=== PATIENT | male | born 1990 | race Caucasian/White ===

== ENCOUNTER 2019-11-16 10:54 | Emergency (ER) | payer OTHER ==
[2019-11-16 11:09] VITALS: TEMP 98.5; BMI 18.1
[2019-11-16] MEDS ORDERED: KETAMINE HCL 200 MG/20 ML VIAL IVPUSH ONE (12:07)
[2019-11-16] MEDS ORDERED: morphine CARPU-JECT 8 MG/1 ML DISP.SYRIN IVPUSH ONE (12:08)
[2019-11-16] MEDS ORDERED: LIDOCAINE HCL 1%, 10 MG/ML (20ML VIAL) ONE (12:12)
[2019-11-16] MEDS ORDERED: morphine SULFATE 4 MG/ML VIAL ONE (12:27)
[2019-11-16] MEDS ORDERED: KETAMINE HCL 200 MG/20 ML VIAL ONE (12:27)
[2019-11-16] MEDS ORDERED: ACETAMINOPHEN 325 MG TABLET (FP) PO ONE (13:32)
--- NOTE | 2019-11-16 13:46 | PDOC ---
Documentation entered by Veronica Merino SCRIBE, acting as scribe for Elida Blanco MD. Elida Blanco MD: This documentation has been prepared by the scribeWilber Ana, SCRIBE, under my direction and personally reviewed by me in its entirety. I confirm that the documentation accurately reflects all work, treatment, procedures, and medical decision making performed by me. History of Present Illness - General Chief Complaint: Shoulder Dislocation Stated Complaint: RT SHOULDER INJURY/PAIN Time Seen by Provider: 11/16/19 11:19 History Source: Patient Exam Limitations: No Limitations - History of Present Illness Initial Comments: 11/16/19 11:31 Patient is a 29 year old male with a significant past medical history of brain tumor, epilepsy disorder, and multiple shoulder dislocation, who presents to the ED with shoulder pain since 4 days ago. Patient stated he had a seizure on Thursday (4 days ago) and hit his shoulder. Patient disclosed he is in "a lot of pain" and cannot move his arm. 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 Patient denies: headache, SOB, chest pain, abdominal pain, or any other related symptoms. Allergies: NKDA Past History - Medical History Allergies/Adverse Reactions: Allergies Allergy/AdvReac Type Severity Reaction Status Date / Time No Known Allergies Allergy Verified 11/16/19 11:08 Home Medications: Ambulatory Orders levETIRAcetam [Keppra -] 500 mg PO BID 02/14/16 COPD: No Seizures: Yes - Immunization History Immunization Up to Date: Yes - Psycho-Social/Smoking History Smoking History: Never smoked Have you smoked in the past 12 months: No Information on smoking cessation initiated: No - Substance Abuse Hx (Audit-C & DAST Scrn) How often the patient has a drink containing alcohol: 2-4 times / month Number of drinks the patient has on a typical day: 3 or 4 How often the patient has six or more drinks on one occasion: Never Score: In Men: 4 or > Positive; In Women: 3 or > Positive: 3 Screen Result (Pos requires Nsg. Audit-10AR): Negative In the last yr the pt used illegal drug/Rx for NonMed reason: No Score: Yes response is considered Positive: 0 Screen Result (Positive result requires Nsg. DAST-10): Negative Review of Systems - Review of Systems Able to Perform ROS?: Yes Comments:: 11/16/19 11:33 GENERAL/CONSTITUTIONAL: No fever or chills. No weakness. HEAD, EYES, EARS, NOSE AND THROAT: No change in vision. No ear pain or discharge. No sore throat. CARDIOVASCULAR: No chest pain or shortness of breath. RESPIRATORY: No cough, wheezing, or hemoptysis. GASTROINTESTINAL: No nausea, vomiting, diarrhea or constipation. GENITOURINARY: No dysuria, frequency, or change in urination. MUSCULOSKELETAL: +Shoulder pain. No neck or back pain. SKIN: No rash NEUROLOGIC: +Seizures. No headache, vertigo, loss of consciousness. ENDOCRINE: No increased thirst. No abnormal weight change. HEMATOLOGIC/LYMPHATIC: No anemia, easy bleeding, or history of blood clots. ALLERGIC/IMMUNOLOGIC: No hives or skin allergy. *Physical Exam - Vital Signs Last Vital Signs Temp Pulse Resp BP Pulse Ox 98.5 F 73 18 122/84 100 11/16/19 11:05 11/16/19 11:05 11/16/19 11:05 11/16/19 11:05 11/16/19 11:05 - Physical Exam 11/16/19 11:34 GENERAL: Awake, alert, and fully oriented, in no acute distress HEAD: No signs of trauma EYES: EOMI, sclera anicteric, conjunctiva clear ENT: Auricles normal inspection, hearing grossly normal, nares patent, oropharynx clear without exudates. Moist mucosa NECK: Normal ROM, supple, no lymphadenopathy, JVD, or masses LUNGS: Breath sounds equal, clear to auscultation bilaterally. No wheezes, and no crackles HEART: Regular rate and rhythm, normal S1 and S2 ABDOMEN: Soft, nontender, normoactive bowel sounds. No guarding, no rebound. No masses EXTREMITIES: ROM R shoulder limited in flexion/extension/abduction, holding RUE in adduction, +deformity near R shoulder, +decreased sensation to light touch over R shoulder, FROM at wrists and elbows b/l, +radial pulses NEUROLOGICAL: Cranial nerves II through XII grossly intact. Normal speech, normal gait SKIN: Warm, Dry, normal turgor, no rashes or lesions noted. Procedures - Joint Reduction Right Joint Reduction Site: right: Shoulder Pre-Procedure NV Exam: abnormal (reports decreased sensation to light touch over R shoulder) Conscious Sedation: No Reduction Attempts: 1 Anesthetic: 1% Lidocaine (10cc intraarticular lidocaine) Amount (mL): 10 Procedure: Traction Counter Traction Post-Procedure NV Exam: unchanged from pre procedure Complications: No Post Joint Reduction Film: joint reduced Immobilized: Yes (sling placed) Progress: 11/16/19 13:40 Patient given 4mg morphine for pain and 25mg ketamine x2 for pain prior to procedure. Patient tolerated procedure well. Medical Decision Making - Medical Decision Making 11/16/19 13:41 29 y M with likely R shoulder dislocation, xray done concerning for R shoulder dislocation, reports decreased sensation to light touch over deltoid but otherwise neurovascularly intact. Plan: -shoulder reduced using intraarticular lidocaine and given moprhine and ketamine for pain prior to reduction. Repeat xray shows shoulder reduced. Will d/c with return precautions, patient has ortho f/u with his orthopedist tomorrow This clinical encounter is taking place during a federal and state health care emergency attributable to the novel Torres Virus pandemic. The [employer] of the Department of Health and Human Services has declared, pursuant to the Public Health Service Act 319F-3 (42 U.S.C. 247d-6d), that a covered persons activities related to medical countermeasures against COVID-19 will be immune from liability under Federal and State law. Discharge - Discharge Information Problems reviewed: Yes Clinical Impression/Diagnosis: Shoulder dislocation Qualifiers: Encounter type: initial encounter Laterality: right Qualified Code(s): S43.004A - Unspecified dislocation of right shoulder joint, initial encounter Condition: Improved Disposition: HOME - Admission No - Follow up/Referral Referrals: Jerrell Willard MD [Primary Care Provider] - - Patient Discharge Instructions Patient Printed Discharge Instructions: DI for Shoulder Dislocation Additional Instructions: You were seen for a shoulder dislocation. Your shoulder was put back in place in the emergency room. You should keep the right arm in a splint until you follow up with your orthopedist. Return to the ED for new or worsening symptoms. You can take tylenol or motrin at home as needed for pain. - Post Discharge Activity
[2019-11-16] MEDS ORDERED: ACETAMINOPHEN 325 MG TABLET (FP) ONE (13:56)
[2019-11-16 14:04] VITALS: BP 132/64; PULSE 89
== END 2019-11-16 14:05 | disposition home or self-care (01) ==
LOC: JER 10:54
PROC: 3E033GC Introduction of Other Therapeutic Substance into Peripheral Vein, Percutaneous Approach (ICD-10-PCS; principal; 2019-11-16)
PROC: 0RSJXZZ Reposition Right Shoulder Joint, External Approach (ICD-10-PCS; principal; 2019-11-16)
DX: S43.004A Unspecified dislocation of right shoulder joint, initial encounter (principal); W22.8XXA Striking against or struck by other objects, initial encounter
CPT/HCPCS: 73030-TC-RT-FY; 99284-25

== ENCOUNTER 2020-01-09 12:34 | Day surgery (SDC) | payer OTHER ==
--- OUTSIDE RECORDS SUMMARY | 2020-01-02 09:59 | XMS ---
:1990 Author Organization [facility] Support Name Relationship Address Phone UE Unavailable Unavailable Unavailable MICHAELLE GA MOTHER [address] [place] [address] MICHAELLE GA Mother [address] [facility] [place] [address] Re-disclosure Warning The records that you are about to access may contain information from federally- assisted alcohol or drug abuse programs. If such information is present, then the following federally mandated warning applies: This information has been disclosed to you from records protected by federal confidentiality rules (42 CFR part 2). The federal rules prohibit you from making any further disclosure of this information unless further disclosure is expressly permitted by the written consent of the person to whom it pertains or as otherwise permitted by 42 CFR part 2. A general authorization for the release of medical or other information is NOT sufficient for this purpose. The Federal rules restrict any use of the information to criminally investigate or prosecute any alcohol or drug abuse patient.The records that you are about to access may contain highly sensitive health information, the redisclosure of which is protected by Article 27-F of the [facility] Public Health law. If you continue you may haveaccess to information: Regarding HIV / AIDS; Provided by facilities licensed or operated by the [facility] Office of Mental Health; or Provided by the [facility] Office for People With Developmental Disabilities. If such information is present, then the following [facility] mandated warning applies: This information has been disclosed to you from confidential records which are protected by state law. State law prohibits you from making any further disclosure of this information without the specific written consent of the person to whom it pertains, or as otherwise permitted by law. Any unauthorized further disclosure in violation of state law may result in a fine or prison sentence or both. A general authorization for the release of medical or other information is NOT sufficient authorization for further disclosure. Insurance Providers Payer name Policy type Policy ID Covered Covered republican's Policy P cynthia / Coverage republican ID relationship to [employer] ormation type whitney CHARISSA [id number] [facility] NON CAP
[2020-01-05 18:42] VITALS: BMI 18.1
[~2020-01-09 12:34] MED LIST: EPINEPHrine 1:1,000 1 MG/1 ML - 30ML VIAL (INJECTION) ONE; MIDAZOLAM HCL 2 MG/2 ML SINGLE DOSE VIAL ONE; ONDANSETRON 4 MG/2 ML VIAL IVPUSH PRN; ROPIVACAINE HCL 0.5% 30ML VIAL ONE; TRANEXAMIC ACID 1000 MG/10 ML VIAL ONE; VANCOMYCIN 1,000 MG VIAL (RESTRICTED TO ID ONLY) ONE; oxyCODONE HCL 5 MG TABLET PO PRN
[2020-01-09] MEDS ORDERED: MIDAZOLAM HCL 2 MG/2 ML SINGLE DOSE VIAL ONE (13:12)
--- NOTE | 2020-01-09 13:14 | HP ---
History & Physical Update - History History: No Change - Physical Physical: No Change - Assessment Assessment: No Change - Plan Plan: No Change
[2020-01-09] MEDS ORDERED: PHENYLEPHRINE HCL 10 MG/1 ML SINGLE DOSE VIAL ONE ×2 (13:15→13:17)
[2020-01-09] MEDS ORDERED: PROPOFOL 20 ML ONE ×2 (13:15→13:17)
[2020-01-09] MEDS ORDERED: fentaNYL CITRATE 250 MCG/5 ML VIAL ONE (13:15)
[2020-01-09] MEDS ORDERED: ePHEDrine SULFATE 50 MG/1 ML AMPULE ONE (13:15)
[2020-01-09] MEDS ORDERED: ROCURONIUM BROMIDE 50 MG/5 ML VIAL ONE (13:16)
[2020-01-09] MEDS ORDERED: GLYCOPYRROLATE 0.2 MG/1 ML VIAL ONE (14:27)
[2020-01-09] MEDS ORDERED: NEOSTIGMINE METHYLSULFATE 0.5 MG/ML - 10 ML MDV ONE (14:27)
[2020-01-09] MEDS ORDERED: SEVOFLURANE 250 ML BTL ONE (14:40)
[2020-01-09] MEDS ORDERED: ACETAMINOPHEN 500 MG TABLET (FP) PO SCH (15:00)
[2020-01-09] MEDS ORDERED: ESMOLOL HCL 100,000 MCG/10 ML VIAL ONE (17:14)
[2020-01-09] MEDS ORDERED: ceFAZolin SODIUM 1 GM VIAL ONE (17:31)
[2020-01-09] MEDS ORDERED: ACETAMINOPHEN INJECTION 100 ML IVPB ONE (17:54)
[2020-01-09] MEDS: ACETAMINOPHEN 1000 MG/100 ML VIAL (NON FORMULARY) IVPB ONE (17:55)
[2020-01-09] MEDS ORDERED: ONDANSETRON 4 MG/2 ML VIAL IVPUSH PRN (17:57)
[2020-01-09] MEDS ORDERED: PROMETHAZINE HCL 25 MG/1 ML VIAL IVPUSH PRN (17:57)
[2020-01-09] MEDS ORDERED: oxyCODONE HCL 5 MG TABLET PO PRN (17:57)
--- NOTE | 2020-01-09 18:07 | OPR ---
Procedure: Left Shoulder- 1. Diagnostic arthroscopy. 2. Arthroscopic limited debridement of glenohumeral joint (22447). 3. Open capsulorrhaphy with capsular plication and anterior glenoid reconstruction with fresh distal tibial osteochondral allograft (97823). Preoperative Diagnoses: 1. 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 3. Hill-Sachs lesion. Postoperative Diagnoses: 1. 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 3. Hill-Sachs lesion. 4. Glenohumeral synovitis. Surgeon: Lazaro Higgins DO Assistants: Santi Card DO Anesthesia: General Anesthesia and Local infiltration analgesic with Ropivicaine: suprascapular nerve, axillary nerve, local superficial field Estimated Blood Loss: 25 mL Drains: None Total IV Fluids: Per anesthesia record Specimens: None Implants: (2) 3.75 mm cannulated fully treaded screw with washer (Arthrex) Complications: None Disposition: PACU Condition: Hemodynamically stable Indications: Manuelito Rubio presented to us with chronic left shoulder pain and recurrent anterior instability that failed conservative measures. His symptoms, signs, and imaging were consistent with the above noted diagnosis. He ultimately elected to proceed with surgical intervention after discussion of the risks, benefits, and alternatives. A CT scan with 3D reconstructions was performed and showed a large Hill-Sachs lesion and over 25% anterior glenoid bone loss. Given the extensive bone loss and multiple recurrences, a soft tissue procedure was deemed to be insufficient for the goal of terminal gauger stability of the shoulder. Thus, a bony augmentation procedure was chosen. We discussed risks including but not limited to, bleeding, pain, infection, scarring, damage to neurovascular structures, blood clots, pulmonary embolus, need for additional surgery, incomplete relief of pain, and incomplete return of function. We also discussed the risks of using fresh allograft including disease transmission. He expressed understanding and wished to proceed. He underwent preoperative medical and neurological evaluation, clearance and optimization prior to surgery. Procedure Details: He was identified in the preoperative area. The left shoulder was marked as the operative site and consent was completed and confirmed. He was later transferred to the operating room and placed in supine position the operating room. Anesthesia was induced without difficulty. He was repositioned into beach chair with all bony prominences appropriately padded. The neck was in neutral alignment. The left upper extremity was prepped and draped in standard sterile fashion. A surgical time-out was performed identifying the correct patient, procedure, and site. Antibiotics were given within 1 hour prior to surgical incision. Examination under anesthesia: Passive range of motion of the left shoulder showed forward elevation of 150, abduction 90, external rotation at side 50, SABER 80, and SABIR 40. This was compared to his contralateral shoulder which shows forward elevation of 170, abduction 100 external rotation at side 60, SABER 90, and SABIR 40. There was grade 3+ anterior instability, grade 0 posterior instability, and mild sulcus. Diagnostic arthroscopy: We began the procedure with the standard posterolateral portal, entered the glenohumeral joint, and an anterior portal was made within the rotator cuff interval under direct visualization with the assistance of a spinal needle. A probe was used to assist with diagnostic arthroscopy and we visualized from both posteriorly and anteriorly. Evaluation of the glenohumeral joint showed moderate synovitis anteriorly and superiorly. The superior labrum was intact. The anterior labrum showed a Bankart tear with significant glenoid bone loss measuring 8 mm. There was deficient capsulolabral tissue that was torn, and partially scarred to the medial aspect of the glenoid neck. The posterior labrum was probed and found to be intact. There were no loose bodies in the inferior pouch. There was no HAGL lesion. The biceps tendon showed hyperemia. The rotator cuff interval was normal. The axillary recess was empty. The subscapularis was probed and found to be intact. The articular surface of the supraspinatus was intact. The articular surface of the infraspinatus and teres minor tendons were intact. The anterior aspect of the glenoid showed grade II and III chondromalacia. The humeral head showed a large Hill-Sachs lesion posteriorly. Arthroscopic limited debridement of glenohumeral joint: We used a combination of the arthroscopic motorized shaver and radiofrequency device to perform a debridement inside the glenohumeral joint anteriorly and superiorly. The hyperemia, erythema, and synovitis of the joint and joint capsule was debrided. Synovitic fronds were thermally ablated. Chondral degeneration was debrided to a stable edge. Labral fraying and degeneration was also resected and debrided to a stable edge anteriorly. Open capsulorrhaphy with capsular plication and anterior glenoid reconstruction using fresh distal tibial osteochondral allograft: We began the open procedure with incision from the inferior tip of the coracoid approximately 8 cm inferior towards the axillary fold. Sharp dissection was carried out through the subcutaneous tissues. Self-retaining retractors were placed. Subcutaneous flaps were developed. Deltopectoral interval was identified and cephalic vein was also identified, protected, and mobilized laterally. We developed a subdeltoid and subpectoral space, here we identified the coracoid process. Retractors were placed superiorly. We divided the clavipectoral fascia lateral to the conjoint tendon and identified the CA ligament. Once self-retaining retractors were placed below the conjoint tendon, we externally rotated the arm bringing the subscapularis muscle into view. We removed the bursal tissue over the subscapularis tendon and divided subscapularis inline with the muscle fibers at its approximate midpoint thorough natural raphe. Curved Wheeler scissor was used to do this and was done sharply extending laterally into the lesser tuberosity insertion. We identified the underlying capsular tissue and dissected the muscular tissue above this and away from capsular tissue. We used a lap sponge and pushed it into the space above the capsule underneath the subscapularis muscle developing a pocket space in front of the anterior glenoid and scapular neck. We then placed anterior glenoid retractor here and blunt Hohmann inferiorly underneath the glenoid. We were able to palpate the axillary nerve and protect it throughout the case. Superior retraction was achieved with appendiceal retractor and self retaining retractors. We were then able to visualize the anterior capsular tissue that was clearly lax. We used a 15 blade to make a horizontal transection of the anterior capsule at approximately the 3 o'clock position. We identified superior and inferior leaflets for later plication. We inserted a Fukuda retractor to retract the humeral head laterally. We released the anterior-inferior aspect of the capsule sharply and with an elevator. Here we could clearly see an anterior-inferior glenoid bony defect approximately 25-30% of the glenoid face that was impacted and crushed in more medially in the anterior scapular neck. We used curved osteotome and rose to freshen the surface of the anterior scapular neck in preparation for receiving the bone graft. We turned our attention to preparation of the fresh distal tibial osteochondral allograft which was prepared on the back table. The graft was removed from its s barbara bath and placed on an allograft work station. The lateral 1/3 of the tibial plafond was measured and marked to accommodate the glenoid defect. The graft was cut with a thin blade sagittal saw. Frequent irrigation was used to prevent thermal necrosis. The allograft was cut medially and a 10-15 degree angle to accommodate the glenoid slope and restore the natural concavity. The superior and inferior aspects of the graft were rounded to match the [place] glenoid contour. The graft measured 1 cm deep medial to lateral, 22 mm long superior to inferior, and 8 mm wide anterior to posterior articular surface. Two 4 mm pilot manager holes were created through the width of the graft. Before fixation, the graft was copiously irrigated with 3 liters of normal saline using pulsed lavage. The graft was transferred to the [place] glenoid to assess the fit and the congruity. K-wires were driven into the glenoid for provisional fixation. We measured the screw lengths and found 36 mm screws to be appropriate. A 2.7 mm cannulated drill was used to over drill the distal cortex. Two 36 mm, 3.75 mm fully- threaded screws were placed in a lag fashion with washers. These were tightened down with 2 finger tightness. This achieved excellent fixation of our bone graft into the anterior scapular neck. It was flush with the glenoid face and did not extend prominently. Sutures attached to the washer were used to repair the labrum and capsule. We turned our attention to capsular plication, taking the superior leaflet of the capsule, bringing it inferiorly and suturing this into the inferior capsular leaflet in pants over vest fashion. This additionally tightened the capsule in superior to inferior fashion. This achieved excellent recreation of the anterior capsular tissues and tension. We then closed the subscapularis split laterally with interrupted [id number] stitches. The shoulder was noted to be stable. There was no undue tension on the brachial plexus or nerves. Wound closure: We thoroughly irrigated the wounds and closed the wound in a layered fashion. The deltopectoral interval was closed with running #2 Ethibond stitch followed by buried 2-0 Vicryl deep tissues in an interrupted fashion. We then closed the skin with 3-0 Monocryl and Dermabond. The shoulder was sterilely dressed and placed in a shoulder immobilizer. Attestation for sampler first: Dr. Santi Card acted as the sampler first. There was no qualified resident or physician assistant infant toddler teacher available to do so. Post-operative Details: I spoke with the family and patient regarding the operation after surgery. Postoperative examination showed a normal neurovascular exam. Postoperative rehabilitation: Anterior Open Stabilizaton Protocol. He will remain in a shoulder immobilizer for 4-6 weeks. Early passive range of motion okay with limit of forward elevation 90 and external rotation 30 and advance as tolerated.
[2020-01-09] MEDS ORDERED: ONDANSETRON 4 MG/2 ML VIAL ONE (18:09)
[2020-01-09] MEDS: levETIRAcetam 500 MG TABLET (FP) PO SCH (20:21)
[2020-01-09] MEDS: oxyCODONE HCL 5 MG TABLET PO PRN (20:47)
[2020-01-10] MEDS: CEFAZOLIN 1 GM/D5W 1 GM/50 ML BAG IVPB SCH ×2 (01:30→08:30)
[2020-01-10] MEDS: ACETAMINOPHEN 325 MG TABLET (FP) PO SCH ×3 (03:41→11:50)
[2020-01-10 06:30] VITALS: BP 127/80; PULSE 77; TEMP 98.3
--- NOTE | 2020-01-10 07:57 | PN ---
Progress Note (short form) - Note Progress Note: 29M POD1 s/p left open shoulder capsulorrhaphy, anterior bone block, remplissage under GA and nerve block. Pt states pain is well controlled and reports no anesthetic complications. AVSS. Continue current regimen.
[2020-01-10] MEDS: ACETAMINOPHEN 1000 MG/100 ML VIAL (NON FORMULARY) IVPB ONE (07:58)
--- NOTE | 2020-01-10 08:23 | PN ---
Progress Note (short form) - Note Progress Note: ORTHOPEDIC SURGERY PROGRESS NOTE Department of Orthopedic Surgery SUBJECTIVE No acute events overnight. No complaints currently. Denies chest pain, shortness of breath, or calf pain. No nausea or vomiting. Tolerating oral intake. Pain controlled. PHYSICAL EXAMINATION General: Alert, oriented, cooperative and no distress. Upper Extremity: Dressing intact; Skin intact, no lesions, rashes or ulcers noted. Muscle mass equal and symmetric to contralateral side. No atrophy noted. No masses or effusions noted. No tenderness to palpation. No pain with gentle passive and active ROM. M/R/U/MSK/AX motor intact; SILT distally; 2+ radial pulses; Cap refill brisk. DVT Exam: No evidence of DVT seen on physical exam; No cords or calf tenderness; No significant calf/ankle edema. Intake & Output 01/08/20 01/09/20 01/10/20 23:59 23:59 23:59 Intake Total 2500 1000 Output Total 550 Balance 1950 1000 Intake: IV 1900 900 Ofirmev Injection - 100 900 ml @ 0 mls/hr IVPB .STK- [facility] Rx#:[id number] IVPB 100 Oral 600 Output: Urine 550 Void 550 Other: Voiding Method Urinal Toilet # Unmeasured Voids Void 1 Bowel Movement No Weight 106 lb Height 5 ft 4 in Body Mass Index (BMI) 18.1 Weight Measurement Method Stated by Patient Active Medications Generic Name Dose Route Start Last Admin Trade Name Freq PRN Reason Stop Dose Admin Acetaminophen 650 mg 01/10/20 00:05 01/10/20 05:58 Tylenol - PO 01/12/20 19:25 650 mg Q6H NEHAL Administration Cefazolin Sodium 1 gm in 50 mls @ 100 mls/hr 01/10/20 01:30 01/10/20 01:30 Ancef 1 Gm Premixed Ivpb - IVPB 01/10/20 13:59 100 mls/hr Q6H NEHAL Administration Levetiracetam 500 mg 01/09/20 20:00 01/09/20 20:21 Keppra - PO 500 mg Q12H NEHAL Administration Ondansetron HCl 4 mg 01/09/20 12:32 01/09/20 18:11 Zofran Injection IVPUSH 4 mg Q6H PRN Administration NAUSEA Oxycodone HCl 5 mg 01/09/20 17:57 01/10/20 05:57 Roxicodone - PO 5 mg Q4H PRN Administration PAIN LEVEL 1-5 Oxycodone HCl 10 mg 01/09/20 17:57 01/09/20 20:47 Roxicodone - PO 10 mg Q4H PRN Administration PAIN LEVEL 6-10 Vital Signs (last) Temp Pulse Resp BP Pulse Ox 98.3 F 77 18 127/80 100 01/10/20 06:28 01/10/20 06:28 01/10/20 06:28 01/10/20 06:01/10/20 07:55 IMAGING Radiographs of the left shoulder shows implant and metal hardware in good position with no signs of failure. ASSESSMENT AND PLAN Manuelito Rubio is a 29 year old male status post left shoulder open stabi lization with fresh distal tibia osteochondral allograft. POD#1 Doing well. - Pain control - SCDs, early ambulation - Ice/Elevation - Elevate HOB, encourage oral intake - NWB LUE; Shoulder immobilizer at all times - DC today when ready
[2020-01-10] MEDS: levETIRAcetam 500 MG TABLET (FP) PO SCH (08:29)
[2020-01-10] MEDS: oxyCODONE HCL 5 MG TABLET PO PRN (11:49)
== END 2020-01-10 11:50 | disposition home or self-care (01) ==
LOC: FASUSAT 12:34 → FM/S 12:34 → FASUSAT 01-10 11:50
PROVIDERS: ATTEND Orthopaedic Surgery
PROC: 0PU Upper Bones, Supplement (ICD-10-PCS; 2020-01-09)
PROC: 0QBH0ZZ Excision of Left Tibia, Open Approach (ICD-10-PCS; 2020-01-09)
PROC: 0RBK4ZZ Excision of Left Shoulder Joint, Percutaneous Endoscopic Approach (ICD-10-PCS; 2020-01-09)
PROC: 0RQK0ZZ Repair Left Shoulder Joint, Open Approach (ICD-10-PCS; principal; 2020-01-09 13:55)
DX: M25.312 Other instability, left shoulder (principal); M85.812 Other specified disorders of bone density and structure, left shoulder; S42.292A Other displaced fracture of upper end of left humerus, initial encounter for closed fracture; X58.XXXA Exposure to other specified factors, initial encounter; Y93.9 Activity, unspecified; Y92.9 Unspecified place or not applicable; M65.812 Other synovitis and tenosynovitis, left shoulder
CPT/HCPCS: 73030-TC-LT-FY; 76000-TC-FY; 94760; J0131